=== PATIENT | female | born 1970 | race African-American/Black ===

== ENCOUNTER 2020-10-14 12:24 | Emergency (ER) | payer OTHER ==
[2020-10-14 12:59] VITALS: BMI 33.5
[2020-10-14] MEDS ORDERED: ACETAMINOPHEN 1000 MG/100 ML VIAL (NON FORMULARY) IVPB ONE (13:21)
[2020-10-14 13:56] LABS: BASO % 1.1 % (0-2.0); EOS % 4.1 % (0-4.5); HEMATOCRIT 38.7 % (32.4-45.2); HEMOGLOBIN 12.8 GM/dL (10.7-15.3); LYMPH % 31.8 % (8-40); MCH 27.4 pg (25.7-33.7); MEAN PLT VOLUME 7.4 fl (7.5-11.1); MONO % 5.3 % (3.8-10.2); NEUT % 57.7 % (42.8-82.8); PLATELET COUNT 396 K/MM3 (134-434); RBC 4.66 M/mm3 (3.60-5.2); RDW 13.7 % (11.6-15.6)
[2020-10-14 14:07] LABS: CHLORIDE 108 mmol/L (98-107); SODIUM 142 mmol/L (136-145)
[2020-10-14 14:09] LABS: ALBUMIN 3.8 g/dl (3.4-5.0); CALCIUM 9.1 mg/dL (8.5-10.1)
[2020-10-14 14:10] LABS: ANION GAP 6 MMOL/L (8-16); BLOOD UREA NITROGEN 11.1 mg/dL (7-18); CO2 28 mmol/L (21-32); GLUCOSE,RANDOM 89 mg/dL (74-106); MAGNESIUM 1.9 mg/dL (1.8-2.4)
[2020-10-14 14:12] LABS: SGOT/AST 18 U/L (15-37); SGPT/ALT 25 U/L (13-61)
[2020-10-14 14:14] LABS: BILIRUBIN,TOTAL 0.3 mg/dL (0.2-1); TOT PROT 7.6 g/dl (6.4-8.2)
[2020-10-14 14:15] LABS: ALK PHOS 79 U/L (45-117)
[2020-10-14 15:25] LABS: INR 1.08 (0.83-1.09); PROTHROMBIN TIME (PATIENT) 13.3 SEC (9.7-13.0)
[2020-10-14 17:10] LABS: URINE APPEARANCE CLEAR; URINE BILIRUBIN NEGATIVE (NEGATIVE); URINE COLOR YELLOW; URINE GLUCOSE (UA) NEGATIVE (NEGATIVE); URINE KETONE NEGATIVE (NEGATIVE); URINE LEUK ESTERASE NEGATIVE (NEGATIVE); URINE NITRITE NEGATIVE (NEGATIVE); URINE PROTEIN NEGATIVE (NEGATIVE); URINE UROBILINOGEN 0.2 mg/dL (0.2-1.0)
[2020-10-14 19:59] VITALS: BP 122/76; PULSE 86; TEMP 97.9
== END 2020-10-14 19:58 | disposition home or self-care (01) ==
LOC: JER 12:24
PROC: 3E033NZ Introduction of Analgesics, Hypnotics, Sedatives into Peripheral Vein, Percutaneous Approach (ICD-10-PCS; principal; 2020-10-14)
DX: R07.9 Chest pain, unspecified (principal); R09.1 Pleurisy; M54.6 Pain in thoracic spine
CPT/HCPCS: 36415; 71045-TC-FY; 71275-TC; 80053; 81003; 82550; 82553; 83735; 83880; 84484; 84703; 85025; 85610; 85730; 93005; 93010; 99285-25; J0131; Q9967